=== PATIENT | male | born 2000 | race Caucasian/White ===

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

== ENCOUNTER 2022-06-21 18:50 | Emergency (ER) | payer OTHER, SELFPAY ==
--- OUTSIDE RECORDS SUMMARY | 2022-06-21 19:28 | XMS REPORT | Continuity of Care Document ---
:2000 Author Organization [facility] t Address [address] [place] [address] Care Team Providers Name Role Phone Pcp, Patient Does Not Have A Primary Care Physician [id number] Guerline Atwood Attending Clinician Problems Condition Condition Condition Status Onset Resolution Last Treating Co mments Source Name Details Category Date Date Treatment Clinician Date No known No known Disease Unive rs active active ity of problems problems [facility] Allergies, Adverse Reactions, Alerts This patient has no known allergies or adverse reactions. Social History Social Habit Start Date Stop Date Quantity Comments Source Exposure to Not sure [facility] SARS-CoV-2 (event) [facility] History of tobacco Cigarette Smoker [place] of use [facility] Tobacco use and 2021-12-18 2021-12-18 Never used Universit y of exposure 00:00:00 00:00:00 [facility] Cigarettes smoked 2021-12-18 2021-12-18 Univers ity of current (pack per 00:00:00 00:00:00 [facility] ) - Reported Branch Cigarette 2021-12-18 2021-12-18 University of pack-years 00:00:00 00:00:00 [facility] Alcohol intake 2021-12-18 2021-12-18 Current drinker Unive rsity of 00:00:00 00:00:[address] [facility] (finding) [place] Sex Assigned At [birth year] Universit y of 00:00:00 00:00:00 [facility] Smoking Status Start Date Stop Date Source Current every day smoker 2021-12-18 00:00:00 Uni [facility] Medications Ordered Filled Start Stop Current Ordering Indication Dosage Frequency Signature Comments Components Source Medication Medication Date Date Medication? Clinician (SIG) Name Name No known No [facility] medications 12-18 ity of 12:15: [address] Vital Signs Vital Name Observation Time Observation Value Comments Source Body weight 2021-12-18 15:07:00 66.407 kg [facility] acute hospital BMI 2021-12-18 15:07:00 19.86 kg/m2 General acute hospital Oxygen saturation 2021-12-18 15:07:00 99 /min [facility] in Arterial blood Medical Br anch by Pulse oximetry Systolic blood 2021-12-18 15:07:00 145 mm[Hg] [facility] pressure [facility] Diastolic blood 2021-12-18 15:07:00 70 mm[Hg] Unive [facility] Heart rate 2021-12-18 15:07:00 85 /min General acute hospital Body height 2021-12-18 15:07:00 182.9 cm General acute hospital Procedures This patient has no known procedures. Encounters Start End Encounter Admission Attending Care Care Encounter Source Date/Time Date/Time Type Type Clinicians Facility Department ID 2021-12-18 2021-12-18 Office AIMEE Ocampo [id number] 04 Univers 10:00:00 10:30:31 Visit [facility] [id number] it y of [place] [id number] Yahir as CATIE?BLEA [id number] [address] MEDICAL OFFICE BUILDING Results This patient has no known results.
[2022-06-21 19:50] LABS: Absolute Lymphocytes (CBC) 1.5 K/uL (0.7-4.9); Hematocrit 39.2 % (39.6-49.0); Lymphocytes % 27.9 % (15.3-44.8); MCV 87.6 fL (80-100); MPV 8.4 fL (7.6-11.3); RBC Red Blood Cell Count 4.47 M/uL (4.33-5.43)
[2022-06-21 19:56] LABS: Protime INR 1.1
--- NOTE | 2022-06-21 20:04 | RAD REPORT ---
EXAM DESCRIPTION: RAD - Pelvis - 06/21/2022 7:54 pm CLINICAL HISTORY: BLUNT TRAUMA COMPARISON: None. TECHNIQUE: AP imaging of the pelvis was obtained. FINDINGS: No fracture of the bony pelvis. No fracture, dislocation or other acute hip joint finding. No significant SI joint findings. No soft tissue abnormality. IMPRESSION: Negative pelvis for acute or significant findings.
--- NOTE | 2022-06-21 20:06 | RAD REPORT ---
EXAM DESCRIPTION: RAD - Shoulder Left 2 View - 06/21/2022 7:54 pm CLINICAL HISTORY: PAIN, trauma COMPARISON: No comparisons TECHNIQUE: Internal and external rotation views of the left shoulder were obtained. FINDINGS: There is no fracture or dislocation. AC joint is normal in appearance. No acute or suspici ous findings. IMPRESSION: Negative two-view left shoulder examination for acute findings.
--- NOTE | 2022-06-21 20:08 | RAD REPORT ---
EXAM DESCRIPTION: RAD - Chest Single View - 06/21/2022 7:54 pm CLINICAL HISTORY: BLUNT CHEST TRAUMA COMPARISON: Portable 02/20/2018 TECHNIQUE: AP portable chest image was obtained 06/21/2022 7:54 pm in supine position. FINDINGS: Lungs are clear. Heart and vasculature are normal. No measurable pleural effusion and no p neumothorax. No acute bony abnormality seen. No acute aortic findings suspected. IMPRESSION: No acute cardiopulmonary process.
--- NOTE | 2022-06-21 20:09 | RAD REPORT ---
EXAM DESCRIPTION: Shoulder Right 2 View - 06/21/2022 7:54 pm CLINICAL HISTORY: PAINfall with trauma COMPARISON: <Comparisons> TECHNIQUE: Internal and external rotation views of the right shoulder were obtained. FINDINGS: There is no fracture or dislocation. AC joint is normal in appearance. No acute or suspic ious findings. IMPRESSION: Negative two-view right shoulder examination.
[2022-06-21 20:14] LABS: Albumin 4.2 g/dL (3.4-5.0); Bilirubin Total 0.3 mg/dL (0.2-1.0); Potassium 3.8 mmol/L (3.5-5.1)
--- NOTE | 2022-06-21 20:28 | RAD REPORT ---
EXAM DESCRIPTION: CT - Head C Spine Cap W Con - 06/21/2022 8:14 pm CLINICAL HISTORY: fall from ladder, back pain COMPARISON: No comparisons TECHNIQUE: Axial [address] head images were obtained. Axial [address] cervical spine images were obtaine d with sagittal and coronal reconstruction images reviewed. During dynamic enhancement of 100mL non-i onic contrast, axial 5 mm images of the chest, abdomen and pelvis were obtained. Biphasic technique p erformed of the abdomen and pelvis. All CT scans are performed using dose optimization technique as appropriate and may include automated exposure control or mA/KV adjustment according to patient size. FINDINGS: No intracranial hemorrhage, mass or edema. No midline shift or abnormal fluid collection. Mastoid air cells and paranasal sinuses are clear. No skull fracture. CT cervical spine imaging shows normal height. Normal alignment of the vertebrae. No disc space narro wing. No paraspinal mass or hematoma seen. Central canal detail is inherently limited. Concerns for t raumatic disc herniation or traumatic cord injury can be further addressed with MR imaging. CT chest shows no pneumothorax, pulmonary contusion or pleural fluid collection. No mediastinal hemat cordelia and the aorta and pulmonary arteries are unremarkable. No chest will mass or abnormal axillary fi nding. No displaced rib fracture or other significant bony finding. CT abdomen and pelvis show no injury to solid abdominal viscera. Gallbladder and biliary tree are unr emarkable. No bowel injury or significant finding. No free air, free fluid or abnormal stranding. No urinary bladder abnormality. No significant bony finding. No significant vascular finding. IMPRESSION: No significant CT Head finding. No significant CT Cervical Spine finding. No significant CT Chest finding. No significant CT Abdomen and Pelvis finding.
[2022-06-21] MEDS ORDERED: FENTANYL CITR 100 MCG/2 ML ONE (20:31)
--- NOTE | 2022-06-21 21:26 | ER ---
Nurse's Notes [facility] Name: Ruiz Flowers Age: 21 yrs Sex: Male : 2000 Arrival Date: 06/21/2022 Time: 18:53 Bed 2 Private MD: Diagnosis: Fall on and from ladder, initial encounter;Pain in unspecified shoulder;Pain in right hip Presentation: 06/21 18:50 Chief complaint: EMS states: pt was working on his house and was on the top rung of a tw2 6' ladder and fell off. landed on landscape brick pavers on her back. NO LOC. witnessed fall to confirm no LOC. pt c/o RIGHT shoulder and back pain 04/04. we gave 50 mcg Fentanyl IV pain 01/03 currently. hx: bipolar, depression. nkda. vs stable. bgl 112 mg/dL. Care prior to arrival: Cervical collar in place. Placed on backboard. Medication(s) given: Fentanyl 50 mcg IV initiated. 18 GA, in the right antecubital area, Glucose check: 112. Mechanism of Injury: Fall from ladder approximately 6 feet. Trauma event details: Injury occurred in the [facility]. 18:50 Acuity: JEROME 3 tw2 18:50 Method Of Arrival: EMS: [facility] tw2 19:03 Coronavirus screen: At this time, the client does not indicate any symptoms associated tw2 with coronavirus-19. Ebola Screen: Patient denies travel to an Ebola-affected area in the 21 days before illness onset. Initial Sepsis Screen: Does the patient meet any 2 criteria? No. Patient's initial sepsis screen is negative. Does the patient have a suspected source of infection? No. Patient's initial sepsis screen is negative. Risk Assessment: Do you want to hurt yourself or someone else? Patient reports no desire to harm self or others. Onset of symptoms was June 21, 2022. Triage Assessment: 18:50 General: Appears in no apparent distress. slender, Behavior is calm, cooperative, tw2 appropriate for age. Pain: Complains of pain in right shoulder and low back. 19:07 Neuro: Level of Consciousness is awake, alert, obeys commands, Oriented to person, tw2 place, time, situation. Respiratory: Airway is patent Respiratory effort is even, unlabored, Respiratory pattern is regular, symmetrical. Trauma Activation: Alert Physician: ED Physician; Name: ; Notified At: ; Arrived At: Physician: General Surgeon; Name: ; Notified At: ; Arrived At: Physician: Radiology; Name: ; Notified At: ; Arrived At: Physician: Respiratory; Name: ; Notified At: ; Arrived At: Physician: Lab; Name: ; Notified At: ; Arrived At: Historical: - Allergies: 19:07 No Known Allergies; tw2 - Home Meds: 19:07 None [Active]; tw2 - PMHx: 19:07 Bipolar disorder; Depressive disorder; tw2 - Immunization history:: Adult Immunizations. - Social history:: Smoking status: . - Immunization history: Last tetanus immunization: unknown. Screenin:07 Abuse screen: Denies threats or abuse. Nutritional screening: No deficits noted. tw2 Tuberculosis screening: No symptoms or risk factors identified. Fall Risk None identified. Primary Survey: 19:08 NO uncontrolled hemorrhage observed. A: The client is alert. Breathing/Chest: tw2 Respiratory effort: spontaneous, unlabored, Chest inspection: symmetrical rise and fall of the chest. Circulation: Skin temperature: warm, dry. Disability Client is alert. Exposure/Environment: All clothing and personal items were removed. Forensic evidence collection is not deemed to be indicated at this time. Items placed in patient belonging bag. There is no evidence of uncontrolled external bleeding. A warming method has been applied: A warm blanket has been provided to the patient. 20:00 Reassessment Alertness and Airway: Awake and alert. The airway is patent. Breathing: jb4 Spontaneous respiratory effort, equal unlabored respirations, breath sounds clear bilaterally, regular pattern with symmetrical chest rise and fall. Circulation: No external hemorrhage noted. Regular and strong central pulse, skin warm/dry/normal color. Disability: Pupils Alert. Assessment: 18:50 Reassessment: pt moved off back board at this time. Dr. puente at bedside. tw2 19:15 Reassessment: Patient appears in no apparent distress at this time. Patient and/or jb4 family updated on plan of care and expected duration. Pain level reassessed. Patient is alert, oriented x 3, equal unlabored respirations, skin warm/dry/pink. PT reports that pain is tolerable at this time and does not need pain medication at this time. 20:00 Reassessment: Patient appears in no apparent distress at this time. Patient and/or jb4 family updated on plan of care and expected duration. Pain level reassessed. Patient is alert, oriented x 3, equal unlabored respirations, skin warm/dry/pink. 20:30 Reassessment: Pt reports increased pain to the right hip, received verbal order to give jb4 50mcg of Fentanyl IVP. 21:45 Reassessment: Patient appears in no apparent distress at this time. Patient and/or jb4 family updated on plan of care and expected duration. Pain level reassessed. Patient is alert, oriented x 3, equal unlabored respirations, skin warm/dry/pink. D/c pending completion of IV fluids. 23:00 Reassessment: Patient appears in no apparent distress at this time. Patient and/or jb4 family updated on plan of care and expected duration. Pain level reassessed. Patient is alert, oriented x 3, equal unlabored respirations, skin warm/dry/pink. Vital Signs: 19:03 BP 117 / 80; Pulse 67; Resp 17; Temp 98.(TE); Pulse Ox 99% on R/A; Weight 59.87 kg (R); tw2 19:30 BP 116 / 78; Pulse 57; Resp 19; Pulse Ox 100% on R/A; jb4 20:30 BP 122 / 75; Pulse 62; Resp 17; Pulse Ox 100% on R/A; jb4 21:30 BP 106 / 67; Pulse 56; Resp 15; Pulse Ox 98% on R/A; jb4 22:30 BP 114 / 73; Pulse 56; Resp 14; Pulse Ox 100% on R/A; jb4 [place] Coma Score: 18:50 Eye Response: spontaneous(4). Verbal Response: oriented(5). Motor Response: obeys tw2 commands(6). Total: 15. 19:30 Eye Response: spontaneous(4). Verbal Response: oriented(5). Motor Response: obeys jb4 commands(6). Total: 15. 20:30 Eye Response: spontaneous(4). Verbal Response: oriented(5). Motor Response: obeys jb4 commands(6). Total: 15. 21:30 Eye Response: spontaneous(4). Verbal Response: oriented(5). Motor Response: obeys jb4 commands(6). Total: 15. 22:30 Eye Response: spontaneous(4). Verbal Response: oriented(5). Motor Response: obeys jb4 commands(6). Total: 15. Trauma Score (Adult): 18:50 Eye Response: spontaneous(1); Verbal Response: oriented(1); Motor Response: obeys tw2 commands(2); Systolic BP: > 89 mm Hg(4); Respiratory Rate: 10 to 29 per min(4); [place] Score: 15; Trauma Score: 12 19:30 Eye Response: spontaneous(1); Verbal Response: oriented(1); Motor Response: obeys jb4 commands(2); Systolic BP: > 89 mm Hg(4); Respiratory Rate: 10 to 29 per min(4); [place] Score: 15; Trauma Score: 12 20:30 Eye Response: spontaneous(1); Verbal Response: oriented(1); Motor Response: obeys jb4 commands(2); Systolic BP: > 89 mm Hg(4); Respiratory Rate: 10 to 29 per min(4); [place] Score: 15; Trauma Score: 12 21:30 Eye Response: spontaneous(1); Verbal Response: oriented(1); Motor Response: obeys jb4 commands(2); Systolic BP: > 89 mm Hg(4); Respiratory Rate: 10 to 29 per min(4); [place] Score: 15; Trauma Score: 12 22:30 Eye Response: spontaneous(1); Verbal Response: oriented(1); Motor Response: obeys jb4 commands(2); Systolic BP: > 89 mm Hg(4); Respiratory Rate: 10 to 29 per min(4); Brenda Score: 15; Trauma Score: 12 ED Course: 18:53 Patient arrived in ED. tw2 18:53 Bed in low position. Call light in reach. monitor tech on. Pulse ox on. NIBP on. tw Warm blanket given. 19:00 Thermoregulation: warm blanket given to patient. 4 19:01 Kami Bellamy MD is Attending Physician. sd2 19:02 Triage completed. tw2 19:05 Arm band placed on. tw2 19:08 Maintain EMS IV. Dressing intact. Site clean \T\ dry. Gauge \T\ site: 18 g RIGHT AC. tw 2 19:09 Patient maintains SpO2 saturation greater than 95% on room air. tw2 19:14 Kennedy Yoo, RN is Primary Nurse. jb4 19:55 XRAY Shoulder LEFT 2 view In Process Unspecified. EDMS 19:55 XRAY Shoulder RIGHT 2 view In Process Unspecified. EDMS 19:55 XRAY Chest (1 view) In Process Unspecified. EDMS 19:56 XRAY Pelvis In Process Unspecified. EDMS 20:16 CT Traumagram (Head C Spine CAP W Con) In Process Unspecified. EDMS 23:01 No provider procedures requiring assistance completed. IV discontinued, intact, jb4 bleeding controlled, No redness/swelling at site. Pressure dressing applied. Administered Medications: 19:36 Not Given (Patient Refused): fentaNYL (PF) 50 mcg IVP once ll3 20:36 Drug: fentaNYL (PF) 50 mcg Route: IVP; Site: right antecubital; jb4 21:00 Follow up: Response: No adverse reaction; Adverse reaction, Physician notified; Pain is jb4 decreased 21:43 Drug: Ketorolac 15 mg Route: IVP; Site: right antecubital; jb4 22:00 Follow up: Response: No adverse reaction; Marked relief of symptoms jb4 21:43 Drug: Methocarbamol 1 grams Route: IVPB; Infused Over: 1 hrs; Site: right antecubital; jb4 22:43 Follow up: Response: No adverse reaction; Marked relief of symptoms; Pain is decreased; jb4 IV Status: Completed infusion; IV Intake: 100ml Medication: 19:15 VIS not applicable for this client. jb4 Intake: 22:43 IV: 100ml; Total: 100ml. jb4 Output: 23:01 Urine: 0ml; Total: 0ml. jb4 Outcome: 21:26 Discharge ordered by . sd2 23:01 Discharged to home via wheelchair, with family. jb4 23:01 Condition: stable 23:01 Discharge instructions given to patient, Instructed on discharge instructions, follow up and referral plans. medication usage, Demonstrated understanding of instructions, follow-up care, medications, Prescriptions given X 2. 23:01 Patient's length of stay in the Emergency Department was greater than 2 hours. D/c was jb4 pending completion of IV medication.Patient's length of stay extended due to 23:03 Patient left the ED. jb4 Signatures: Dispatcher [employer] EDNallely Tran, RN RN tw2 Kennedy Yoo RN RN jb4 Kami Bellamy MD MD sd2 Kev Underwood RN ll3 Corrections: (The following items were deleted from the chart) 19:05 18:50 Care prior to arrival: Medication(s) given: Fentanyl 50 mcg IV initiated. 18 GA, tw2 in the right antecubital area, Glucose check: 112 tw2 19:07 18:50 Pain: Complains of pain in right shoulder and low back tw2 tw2 19:54 19:53 Discharged to home ambulatory, with family, [place] [id number] 19:54 19:53 Condition: stable jb4 4 :54 19:53 Discharge instructions given to patient, Instructed on discharge instructions, 4 follow up and referral plans. Demonstrated understanding of instructions, follow-up care, 4 20:02 19:53 No provider procedures requiring assistance completed. jb4 jb4 20:02 19:53 IV discontinued, intact, bleeding controlled, No redness/swelling at site. jb4 Pressure dressing applied, 4
--- NOTE | 2022-06-21 21:27 | EDPHYS ---
Physician Documentation [facility] Name: Ruiz Flowers Age: 21 yrs Sex: Male : 2000 Arrival Date: 06/21/2022 Time: 18:53 Bed 2 Private MD: ED Physician Kami Bellamy HPI: 06/21 19:28 This 21 yrs old Male presents to ER via EMS with complaints of fall. sd2 19:28 21-year-old male presents via EMS with chief complaint of fall off of a 6 foot ladder sd2 as he was climbing down from it. He reports he fell impacting his right shoulder area. He cannot recall hitting his head or losing consciousness. He mostly complains of pain to his bilateral shoulders. He denies any chest pain, shortness of breath or abdominal pain. He was brought in with a c-collar in place and backboard. Patient has no known medical problems and no other complaints at this time. He is not on blood thinners.. Historical: - Allergies: 19:07 No Known Allergies; tw2 - Home Meds: 19:07 None [Active]; tw2 - PMHx: 19:07 Bipolar disorder; Depressive disorder; tw2 - Immunization history:: Adult Immunizations. - Social history:: Smoking status: . - Immunization history: Last tetanus immunization: unknown. ROS: 19:28 Constitutional: Negative for fever, chills, and weight loss, Eyes: Negative for injury, sd2 pain, redness, and discharge, ENT: Negative for injury, pain, and discharge, Neck: Negative for injury, pain, and swelling, Cardiovascular: Negative for chest pain, palpitations, and edema, Respiratory: Negative for shortness of breath, cough, wheezing. Abdomen/GI: Negative for abdominal pain, nausea, vomiting, diarrhea. Back: Positive for injury and pain MS/Extremity: Positive for injury and negative for deformity, Skin: Negative for injury, rash, and discoloration, Neuro: Negative for headache, numbness and tingling. Exam: 19:28 Constitutional: This is a well developed, well nourished patient who is awake, alert, sd2 and in no acute distress. Head/Face: Normocephalic, atraumatic. Eyes: EOMI, normal conjunctiva bilaterally Neck: C-collar in place Chest/axilla: Normal chest wall appearance and motion. Nontender with no deformity. Cardiovascular: Regular rate and rhythm with a normal S1 and S2. No gallops, murmurs, or rubs. 2+ distal pulses. Respiratory: Lungs have equal breath sounds bilaterally, clear to auscultation and percussion. No rales, rhonchi or wheezes noted. No increased work of breathing, no retractions or nasal flaring. Abdomen/GI: Soft, non-tender, with normal bowel sounds. No guarding or rebound. No evidence of tenderness throughout. Skin: Warm, dry with normal turgor. Normal color with no rashes, no lesions, and no evidence of cellulitis. MS/ Extremity: Pulses equal, no cyanosis. Neurovascular intact. Full, normal range of motion. Pain with ROM of R and L shoulder and movement of R hip Neuro: Awake and alert, GCS 15, oriented to person, place, time, and situation. Cranial nerves II-XII grossly intact. Motor strength 5/5 in all extremities. Sensory grossly intact. Psych: Awake, alert, with orientation to person, place and time. Behavior, mood, and affect are within normal limits. Vital Signs: 19:03 BP 117 / 80; Pulse 67; Resp 17; Temp 98.(TE); Pulse Ox 99% on R/A; Weight 59.87 kg (R); tw2 19:30 BP 116 / 78; Pulse 57; Resp 19; Pulse Ox 100% on R/A; jb4 20:30 BP 122 / 75; Pulse 62; Resp 17; Pulse Ox 100% on R/A; jb4 21:30 BP 106 / 67; Pulse 56; Resp 15; Pulse Ox 98% on R/A; jb4 22:30 BP 114 / 73; Pulse 56; Resp 14; Pulse Ox 100% on R/A; jb4 Brenda Coma Score: 18:50 Eye Response: spontaneous(4). Verbal Response: oriented(5). Motor Response: obeys tw2 commands(6). Total: 15. 19:30 Eye Response: spontaneous(4). Verbal Response: oriented(5). Motor Response: obeys jb4 commands(6). Total: 15. 20:30 Eye Response: spontaneous(4). Verbal Response: oriented(5). Motor Response: obeys jb4 commands(6). Total: 15. 21:30 Eye Response: spontaneous(4). Verbal Response: oriented(5). Motor Response: obeys jb4 commands(6). Total: 15. 22:30 Eye Response: spontaneous(4). Verbal Response: oriented(5). Motor Response: obeys jb4 commands(6). Total: 15. Trauma Score (Adult): 18:50 Eye Response: spontaneous(1); Verbal Response: oriented(1); Motor Response: obeys tw2 commands(2); Systolic BP: > 89 mm Hg(4); Respiratory Rate: 10 to 29 per min(4); Brenda Score: 15; Trauma Score: 12 19:30 Eye Response: spontaneous(1); Verbal Response: oriented(1); Motor Response: obeys jb4 commands(2); Systolic BP: > 89 mm Hg(4); Respiratory Rate: 10 to 29 per min(4); Brenda Score: 15; Trauma Score: 12 20:30 Eye Response: spontaneous(1); Verbal Response: oriented(1); Motor Response: obeys jb4 commands(2); Systolic BP: > 89 mm Hg(4); Respiratory Rate: 10 to 29 per min(4); [place] Score: 15; Trauma Score: 12 21:30 Eye Response: spontaneous(1); Verbal Response: oriented(1); Motor Response: obeys jb4 commands(2); Systolic BP: > 89 mm Hg(4); Respiratory Rate: 10 to 29 per min(4); Brenda Score: 15; Trauma Score: 12 22:30 Eye Response: spontaneous(1); Verbal Response: oriented(1); Motor Response: obeys jb4 commands(2); Systolic BP: > 89 mm Hg(4); Respiratory Rate: 10 to 29 per min(4); [place] Score: 15; Trauma Score: 12 MDM: 19:01 Patient medically screened. sd2 19:28 Differential diagnosis: Differential diagnosis includes but is not limited to: sd2 Fracture, contusion, abrasion, closed head injury, pneumothorax, intra-abdominal injury, intracranial hemorrhage, spinal injury among others. Data reviewed: vital signs, nurses notes, EMS record. 21:23 Data reviewed: lab test result(s), radiologic studies. Counseling: I had a detailed sd2 discussion with the patient and/or guardian regarding: the historical points, exam findings, and any diagnostic results supporting the discharge/admit diagnosis, lab results, radiology results, the need for outpatient follow up, to return to the emergency department if symptoms worsen or persist or if there are any questions or concerns that arise at home. Special discussion: Based on the patient's history, exam and DX evaluation, there is no indication for emergent intervention or inpatient TX. It is understood by the patient/guardian that if the SXs persist or worsen they need to return immediately for re-evaluation. ED course: labs and imaging reviewed. No acute traumatic injuries noted. C-collar cleared without complication or difficulty. Pt to follow up outpatient regarding injuries. Advised of continued supportive care and need for outpatient follow up. Verbalizes understanding of discharge plan and strict return precautions. . 06/21 19:21 Order name: CBC with Diff; Complete Time: 20:08 sd2 06/21 19:21 Order name: CMP; Complete Time: 20:15 sd2 06/21 19:21 Order name: PT-INR; Complete Time: 20:08 sd2 06/21 19:21 Order name: Ptt, Activated; Complete Time: 20:08 sd2 06/21 19:21 Order name: CT Traumagram (Head C Spine CAP W Con); Complete Time: 20:32 sd2 06/21 20:33 Order name: CREATININE WHOLE BLOOD; Complete Time: 20:41 EDMS 06/21 19:21 Order name: XRAY Shoulder LEFT 2 view; Complete Time: 20:15 sd2 06/21 19:21 Order name: XRAY Shoulder RIGHT 2 view; Complete Time: 20:15 sd2 06/21 19:21 Order name: XRAY Chest (1 view); Complete Time: 20:15 sd2 06/21 19:21 Order name: XRAY Pelvis; Complete Time: 20:08 sd2 Administered Medications: 19:36 Not Given (Patient Refused): fentaNYL (PF) 50 mcg IVP once ll3 20:36 Drug: fentaNYL (PF) 50 mcg Route: IVP; Site: right antecubital; jb4 21:00 Follow up: Response: No adverse reaction; Adverse reaction, Physician notified; Pain is jb4 decreased 21:43 Drug: Ketorolac 15 mg Route: IVP; Site: right antecubital; jb4 22:00 Follow up: Response: No adverse reaction; Marked relief of symptoms jb4 21:43 Drug: Methocarbamol 1 grams Route: IVPB; Infused Over: 1 hrs; Site: right antecubital; jb4 22:43 Follow up: Response: No adverse reaction; Marked relief of symptoms; Pain is decreased; jb4 IV Status: Completed infusion; IV Intake: 100ml Disposition Summary: 06/21/22 21:26 Discharge Ordered Location: Home sd2 Problem: new sd2 Symptoms: have improved sd2 Condition: Stable sd2 Diagnosis - Fall on and from ladder, initial encounter sd2 - Pain in unspecified shoulder sd2 - Pain in right hip sd2 Followup: sd2 - With: Private Physician - When: 2 - 3 days - Reason: Recheck today's complaints, Continuance of care, Re-evaluation by your physician Discharge Instructions: - Discharge Summary Sheet sd2 - Musculoskeletal Pain sd2 - Hip Pain sd2 Forms: - Medication Reconciliation Form sd2 - Thank You Letter sd2 - Antibiotic Education sd2 - Prescription Opioid Use sd2 Prescriptions: - Ibuprofen 600 mg Oral Tablet - take 1 tablet by ORAL route every 6 hours As needed take with food; 20 tablet; sd2 Refills: 0, Product Selection Permitted - methocarbamol 750 mg Oral Tablet - take 1 tablet by ORAL route every 8 hours As needed; 15 tablet; Refills: 0, sd2 Product Selection Permitted Signatures: Dispatcher [employer] Nallely Carmichael RN RN tw2 Kennedy Yoo RN RN jb4 Kami Bellamy MD MD sd2 Kev Underwood RN ll3
[2022-06-21] MEDS ORDERED: METHOCARBAMOL 1,000 MG/10 ML VIAL IV ONE (21:34)
[2022-06-21] MEDS ORDERED: NA CHLORIDE 0.9% 100 ML ONE (21:35)
[2022-06-21] MEDS ORDERED: KETOROLAC 30 MG/ML INJ ONE (21:35)
== END 2022-06-21 23:03 | disposition home or self-care (01) ==
LOC: ER 18:50
DX: M25.511 Pain in right shoulder (principal); M25.551 Pain in right hip; W11.XXXA Fall on and from ladder, initial encounter
CPT/HCPCS: 36415; 70450; 71045; 71260; 72125; 72170; 74177; 80053; 82565; 85025; 85610; 85730; 96365; 96375; 99285; J2800; J3010; Q9967

== ENCOUNTER 2023-03-30 01:33 | Emergency (ER) | payer SELFPAY ==
--- OUTSIDE RECORDS SUMMARY | 2023-03-30 01:37 | XMS REPORT | Continuity of Care Document ---
:2000 Author Organization [facility] t Address [address] [place] [address] Care Team Providers Name Role Phone Pcp, Patient Does Not Have A Primary Care Physician [id number] GUERLINE XIONG Attending Clinician Unavailable Guerline Atwood Attending Clinician Doctor Unassigned, [place] Attending Clinician Unavailable Florence Azul MD Attending Clinician FLORENCE AZUL Attending Clinician Unavailable GLENDA CARTER Attending Clinician Unavailable Payers Payer Name Policy Type Policy Number Effective Date Expiration Date Aidee carty MEDICAID PENDING PENDING 2021 00:00:00 Problems Condition Condition Condition Status Onset Resolution Last Treating Co mments Source Name Details Category Date Date Treatment Clinician Date No known No known Disease Unive rs active active ity of problems problems [facility] Allergies, Adverse Reactions, Alerts This patient has no known allergies or adverse reactions. Social History Social Habit Start Date Stop Date Quantity Comments Source Exposure to Not sure University of SARS-CoV-2 (event) [facility] History of tobacco Cigarette Smoker University of use [facility] Tobacco use and 2021-12-18 2021-12-18 Never used Universit y of exposure 00:00:00 00:00:00 [facility] Cigarettes smoked 2021-12-18 2021-12-18 Univers ity of current (pack per 00:00:00 00:00:00 ) - Reported Branch Cigarette 2021-12-18 2021-12-18 University of pack-years 00:00:00 00:00:00 [facility] Alcohol intake 2021-12-18 2021-12-18 Current drinker Unive rsity of 00:00:00 00:00:00 of alcohol [facility] (finding) [address] Sex Assigned At [birth year] Universit y of 00:00:00 00:00:00 [facility] Smoking Status Start Date Stop Date Source Current every day smoker 2021-12[facility]18 [facility] Ordered Filled Start Stop Current Ordering Indication Dosage Frequency Signature Comments Components Source Medication Medication Date Date Medication? Clinician (SIG) Name Name No known No Univers medications 3-25 ity of 12:15: [address] Vital Signs Vital Name Observation Time Observation Value Comments Source Systolic blood 2021-12-18 15:07:00 145 mm[Hg] Univer sity [facility] Diastolic blood 2021-12-18 15:07:00 70 mm[Hg] Unive rsity [facility] Heart rate 2021-12-18 15:07:00 85 /min [facility] Body height 2021-12-18 15:07:00 182.9 cm [facility] Body weight 2021-12-18 15:07:00 66.407 kg [facility] BMI 2021-12-18 15:07:00 19.86 kg/m2 [facility] Oxygen saturation 2021-12-18 15:07:00 99 /min [facility] in Arterial blood Medical Br anch by Pulse oximetry Procedures This patient has no known procedures. Encounters Start End Encounter Admission Attending Care Care Encounter Source Date/Time Date/Time Type Type Clinicians Facility Department ID 2021-12-18 2021-12-18 Outpatient R TYRESE [facility] [id number] Univers 10:00:00 10:30:31 [facility] 2021-12-18 2021-12-18 Office AIMEE Xiong [id number] Univers 10:00:00 10:30:31 Visit Guerline [facility] [id number] it y of [place] [id number] Yahir as CATIE?BLEA [phone] [place] dical KNEY [address] [facility] 2021-12-18 2021-12-18 Orders Doctor MILENA [id number] Univers 00:00:00 00:00:00 Only Unassigned, JC [id number] ity of [place] [facility] [id number] Yahir as [id number] [facility] [address] 2021-09-19 2021-09-19 Orders Doctor MILENA [id number] Univers 00:00:00 00:00:00 Only Unassigned, JC [id number] ity of [place] [facility] [id number] Yahir as [id number] [facility] [address] 2021-08-05 2021-08-06 [facility] [id number] Univers 21:23:00 09:30:00 Florence GRULLON [id number] i ty of [place] [id number] [facility] [id number] [facility] [address] 2021-08-05 2021-08-06 Emergency [facility] E[facility] [id number] Univers 21:23:00 09:30:00 FLORENCE [facility] 2019-12-03 2019-12-03 Outpatient R [facility] [id number] Univers 14:45:00 14:45:00 GLENDA [facility] Results This patient has no known results.
[2023-03-30] MEDS ORDERED: HYDROCODONE/APAP 5/325 MG TAB ONE (03:29)
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
[2023-03-30 05:33] VITALS: TEMP 99.1; O2SAT 98
[2023-03-30 05:35] VITALS: BP 110/68
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
== END 2023-03-30 05:03 | disposition home or self-care (01) ==
LOC: ER 01:33
DX: S60.222A Contusion of left hand, initial encounter (principal); S60.131A Contusion of right middle finger with damage to nail, initial encounter; S50.02XA Contusion of left elbow, initial encounter; S90.211A Contusion of right great toe with damage to nail, initial encounter
CPT/HCPCS: 99283